=== PATIENT | female | born 1980 | race Caucasian/White ===

== ENCOUNTER 2021-12-03 10:19 | Outpatient (CLI) | payer BC | END 2021-12-03 10:20 | disposition home or self-care (01) | LOC: CSHMAMMO 10:19 | PROVIDERS: ATTEND Obstetrics & Gynecology | DX: Z12.31 Encounter for screening mammogram for malignant neoplasm of breast (principal) | CPT/HCPCS: 77063; 77067 ==

== ENCOUNTER 2023-02-22 15:03 | Outpatient (CLI) | payer BC | END 2023-02-22 15:04 | disposition home or self-care (01) | LOC: CSHMAMMO 15:03 | PROVIDERS: ATTEND Obstetrics & Gynecology | DX: Z12.31 Encounter for screening mammogram for malignant neoplasm of breast (principal); R92.1 Mammographic calcification found on diagnostic imaging of breast; N63.20 Unspecified lump in the left breast, unspecified quadrant; Z91.89 Other specified personal risk factors, not elsewhere classified | CPT/HCPCS: 77063; 77067 ==